=== PATIENT | female | born 1985 | race Caucasian/White ===

== ENCOUNTER 2022-08-07 15:45 | Emergency (ER) | payer SELFPAY ==
[2022-08-07] MEDS ORDERED: Ondansetron PF 4 MG/2 ML Vial ONE (16:24)
[2022-08-07 17:02] LABS: Mean Corpuscular HGB CONC 32.5 g/dL (32.0-36.0); Mean Corpuscular Hemoglobin 27.7 pg (27.0-31.0); Mean Corpuscular Volume 85.1 fl (78.0-98.0); Mean Platelet Volume 7.7 fL (7.4-10.4); Platelet Count 338 10x3/uL (130-400); RBC Distribution Width 14.1 % (11.5-14.5); Red Blood Cell (RBC) Count 3.96 mill/uL (4.20-5.40); White Blood Cell (WBC) Count 14.3 10x3/uL (4.8-10.8)
[2022-08-07 17:13] LABS: ALT (SGPT) 32 U/L (8-55); AST (SGOT) 19 U/L (5-34); Albumin 4.4 g/dL (3.5-5.0); Alkaline Phosphatase 90 U/L (40-110); Anion Gap 12 mmol/L (10-20); BUN (Urea Nitrogen) 12 mg/dL (7.0-18.7); Bilirubin, Total 0.2 mg/dL (0.2-1.2); Calc. Creatinine Clearance 0 mL/min (70-130); Carbon Dioxide 19 mmol/L (22-29); Chloride 110 mmol/L (98-107); Estimated GFR 80; Globulin 3.1 g/dL (2.4-3.5); Glucose 107 mg/dL (70-105); Potassium 3.2 mmol/L (3.5-5.1); Protein, Total 7.5 g/dL (6.0-8.3); Sodium 138 mmol/L (136-145)
[2022-08-07 17:15] LABS: Lymphocytes 41 % (21-51); MDiff Complete? YES; Monocytes 4 % (0-10); Neutrophil 38 % (42-75); Platelet Morphology Comment Appears Adequate; Polychromasia SLIGHT = 2-3 cells (100X) (0-2/hpf); Reactive Lymphocytes 16 % (0-10)
[2022-08-07 17:17] LABS: BHCG - Serum Negative (NEGATIVE); Pregs Control Background? CLEAR/WHITE (CLR/WHITE); Pregs Control Bar Appear? YES (CONTROL BAR)
[2022-08-07] MEDS ORDERED: Potassium Chloride 20 MEQ TAB ONE (17:45)
== END 2022-08-07 18:20 | disposition home or self-care (01) ==
LOC: ERS 15:45
DX: R56.9 Unspecified convulsions (principal); J44.9 Chronic obstructive pulmonary disease, unspecified
CPT/HCPCS: 80053; 84703; 85025; J2405

== ENCOUNTER 2022-09-19 22:47 | Emergency (ER) | payer MEDICAID, OTHER, SELFPAY ==
[2022-09-19] MEDS ORDERED: methylPREDNISolone Sod Succ/PF 125 MG/2 ML VIAL ONE (23:28)
[2022-09-19 23:36] LABS: #Basophils 0.1 thou/uL (0.0-0.2); #Eosinphils 0.2 thou/uL (0.0-0.7); #Lymphocytes 4.7 thou/uL (1.20-3.40); #Monocytes 0.8 thou/uL (0.11-0.59); #Neutrophils 4.1 thou/uL (1.40-6.50); %Basophils 0.6 % (0.0-1.0); %Lymphocytes 47.7 % (21.0-51.0); %Neutrophils 41.7 % (42.0-75.0); Hemoglobin 10.9 g/dL (12.0-16.0); Mean Corpuscular HGB CONC 33.7 g/dL (32.0-36.0); Mean Corpuscular Volume 83.3 fl (78.0-98.0); Mean Platelet Volume 7.3 fL (7.4-10.4); Platelet Count 323 10x3/uL (130-400); RBC Distribution Width 13.9 % (11.5-14.5); White Blood Cell (WBC) Count 9.9 10x3/uL (4.8-10.8)
[2022-09-19 23:58] LABS: ALT (SGPT) 30 U/L (8-55); AST (SGOT) 21 U/L (5-34); Alkaline Phosphatase 96 U/L (40-110); Anion Gap 14 mmol/L (10-20); BUN (Urea Nitrogen) 11 mg/dL (7.0-18.7); Bilirubin, Total 0.2 mg/dL (0.2-1.2); Calc. Creatinine Clearance 0 mL/min (70-130); Calcium 8.5 mg/dL (7.8-10.44); Carbon Dioxide 20 mmol/L (22-29); Chloride 112 mmol/L (98-107); Estimated GFR 93; Globulin 2.6 g/dL (2.4-3.5); Glucose 126 mg/dL (70-105); Potassium 3.5 mmol/L (3.5-5.1); Protein, Total 6.6 g/dL (6.0-8.3); Sodium 142 mmol/L (136-145)
[2022-09-20] MEDS ORDERED: Lidocaine 1% MPF 2 ML VIAL ONE (00:42)
[2022-09-20] MEDS ORDERED: Dexamethasone 4 MG TAB ONE (00:42)
[2022-09-20] MEDS ORDERED: Azithromycin 250 MG TAB ONE (00:42)
[2022-09-20] MEDS ORDERED: cefTRIAXone\\ROCEPHIN 1 GM VIAL ONE ×2 (00:42→00:47)
[2022-09-20] MEDS ORDERED: Lidocaine 2% PF 5 ML VIAL ONE (00:48)
[2022-09-20] MEDS ORDERED: Albuterol Sulfate 2.5 mg/0.5 ml Neb ONE (01:17)
[2022-09-20] MEDS ORDERED: Albuterol Sulfate 2.5 mg/3 ml Neb ONE (01:17)
== END 2022-09-20 02:42 | disposition home or self-care (01) ==
LOC: ERS 22:47
DX: J18.9 Pneumonia, unspecified organism (principal); J45.901 Unspecified asthma with (acute) exacerbation
CPT/HCPCS: 36415; 71045; 80053; 84484; 85025; 93005; 96372; J0696; J2001; J2930; J7611; J7620; J8540